=== PATIENT | male | born 1995 | race Caucasian/White ===

== ENCOUNTER 2023-07-11 08:37 | Outpatient (REF) | payer MEDICAID, SELFPAY ==
[2023-07-11 11:31] LABS: Estimated Average Glucose 117 mg/dL; Hemoglobin A1c % 5.7 % (<6.0)
[2023-07-11 11:52] LABS: Alanine Aminotransferase 28 U/L (0-40); Albumin Level 4.5 g/dL (3.5-5.0); Alkaline Phosphatase 70 U/L (39-117); Anion Gap 11 (12-20); Aspartate Amino Transferase 19 U/L (5-37); Bilirubin Total 0.5 mg/dL (0.0-1.0); Blood Urea Nitrogen 12 mg/dL (9-16); Calcium 9.6 mg/dL (8.4-10.2); Carbon Dioxide 27 mmol/L (22-29); Chloride 103 mmol/L (96-108); Cholesterol 241 mg/dL (<200); Estimated Glomerular Filt Rate > 60; Glucose Random 109 mg/dL (60-115); HDL Cholesterol 46 mg/dL (>40); LDL Cholesterol Calculated 173 mg/dL (<100); Potassium 4.1 mmol/L (3.3-5.1); Sodium 137 mmol/L (135-145); Total Protein 7.8 g/dL (6.5-8.0); Triglycerides 112 mg/dL (<150)
== END 2023-07-11 08:38 | disposition home or self-care (01) ==
LOC: HO.HHCL 08:37
PROVIDERS: Visit Provider Nurse Practitioner Family
DX: Z71.3 Dietary counseling and surveillance (principal); R03.0 Elevated blood-pressure reading, without diagnosis of hypertension
CPT/HCPCS: 36415; 80053; 80061; 83036

== ENCOUNTER 2023-08-26 16:35 | Outpatient (REF) | payer MEDICAID, SELFPAY ==
[2023-08-27 03:00] LABS: CT PCR NOT DETECTED (Not Detect.); NG PCR NOT DETECTED (Not Detect.)
[2023-08-29 04:07] LABS: ~Hepatitis C Antibody Nonreactive (Nonreactive)
[2023-08-30 12:23] LABS: RPR Rapid Plasma Reagin NON-REACTIVE (NON-REACTIVE)
[2023-09-16 18:18] LABS: HIV RNA PCR Qn Copies Not Detected Copies/mL; HIV RNA PCR Qn Log Copies Not Detected Log cps/mL
== END 2023-08-26 16:36 | disposition home or self-care (01) ==
LOC: HO.HHCL 16:35
PROVIDERS: Visit Provider Nurse Practitioner Family
DX: Z11.3 Encounter for screening for infections with a predominantly sexual mode of transmission (principal); Z11.59 Encounter for screening for other viral diseases
CPT/HCPCS: 0353U; 36415; 86592; 86803; 87536; 87900

== ENCOUNTER 2023-09-13 15:28 | Outpatient (AMB) | payer MEDICAID, SELFPAY ==
--- NOTE | 2023-09-13 15:29 | A.OFFVIS_ITS ---
Intake Vital Signs 09/13/23 15:37 Height 5 ft 9 in Weight 236 lb BMI 34.8 BP 145/70 H Blood Pressure Location Rt brachial Position Sitting Pulse 81 Intake Visit Reasons: Umbilial Hernia Intake Note: Patient referred by pcp Rock Gill for umbilical hernia. Patient first noticed end of 2022. Patient c/o: Irritated when rubbing against it. Bothersome after heavy meals. Material Planning Analyst Required: No Accompanied by: Self / Same As Patient Allergies No Known Allergies Allergy (Verified 09/13/23 15:34) HPI HPI Comments History of Present Illness Details Patient presents with a 6 month plus history of symptomatic umbilical hernia. His increasing size, becoming more symptomatic. He wished to have repaired. He does do significant heavy lifting at his place of employment. He has no other GI issues or complaints. Chart was reviewed and patient evaluated [facility] Surgical History (Updated 09/14/23 @ 13:41 by Milton Hays MD) [place] teeth extracted Social History (Updated 09/13/23 @ 15:35 by JANE Britt) Cigarettes Per Day: 5 Physical Exam Vital Signs: Last Vital Signs Pulse 81 09/13/23 15:37 BP 145/70 H 09/13/23 15:37 BMI result Body Mass Index 34.8 Chest Other: Chest breath sounds bilaterally, HS 1 in 2 GI Other: Patient was examined supine and standing with Valsalva. Bilateral groin exam negative. Genitalia within normal limits. Abdomen corpulent, soft, proximally 3 cm reducible umbilical hernia. Assessment & Plan Assessment & Plan (1) Umbilical hernia: Code(s): K42.9 - Umbilical hernia without obstruction or gangrene Plan Risks, benefits, alternatives of open umbilical hernia repair with mesh were reviewed the patient and included but not limited to bleeding, infection, recurrence, numbness, pain, scarring, bowel injury and the patient wishes to proceed. All questions answered. Arrangements will be made for this. Coding Level of Care Code New Pt Level 5 (15555) Diagnoses Umbilical hernia K42.9
[2023-09-13 15:37] VITALS: BP 145/70; PULSE 81; BMI 34.8
== END 2023-09-13 16:04 | disposition home or self-care (01) ==
PROVIDERS: PCP Internal Medicine; Referring Provider Internal Medicine; Visit Provider Surgery
DX: K42.9 Umbilical hernia without obstruction or gangrene (principal)
CPT/HCPCS: 99204

== ENCOUNTER → 2023-09-13 15:28 | Outpatient (BNVA) | payer MEDICAID, SELFPAY | PROVIDERS: PCP Internal Medicine; Referring Provider Internal Medicine; Visit Provider Surgery | DX: K42.9 Umbilical hernia without obstruction or gangrene (principal) | CPT/HCPCS: 99202 ==

== ENCOUNTER 2023-10-13 07:03 | Day surgery (SDC) | payer MEDICAID, SELFPAY ==
[2023-10-11 12:22] VITALS: BMI 34.0
--- NOTE | 2023-10-12 11:03 | MHC.SHP ---
Pre-Procedural Eval Section A - 24 Hr Update-Section A only Date of Service: 10/12/23 The patient is an INPATIENT: No Changes since office visit: No Cold of Flu in the past 2 weeks, No New Medical Problems, No Changes in Medication and No Patient answered all questions The patient has been examined within 24 hours of the surgical procedure. The History & Physical has been completed within 30 days and I have reviewed it.: Yes Section B - Complete if H&P > 30 days Chief Complaint: Umbilical hernia without obstruction or gangrene Allergies: Allergies Allergy/AdvReac Type Severity Reaction Status Date / Time No Known Allergies Allergy Verified 10/11/23 12:24 Plan I have reviewed the history and physical and performed a pertinent physical examination on my patient. No changes have occurred unless specified. Time Spent With Patient Time: Total time managing care of this patient today ____ minutes.
--- NOTE | 2023-10-12 11:49 | HO.ANESPROP2 ---
Documented by User: Marie Hernandez NP 10/12/23 11:49 HPI - Anesthesia Eval Consult details Narrative: 28yo M for Open Repair Hernia Umbilical Reducible with mesh PMFSH Active Problems Active Problems: All Active Problems (Updated 09/14/23 @ 13:41 by Milton Hays MD) Umbilical hernia (Acute) Past Medical History Medical History History of fainting History of heartburn Depression Anxiety Asthma Seasonal allergies Surgical History Surgical History [place] teeth extracted Social History Social History (Updated 10/13/23 @ 08:29 by Callie Rollins MD) Are you a primary social worker palliative care to a significant other at home: No Do you presently have visiting nurse or other home services: No Patient Tobacco Use Status: Current everyday Tobacco user Tobacco use type: Cigarette Cigarettes Per Day: 5 Substance Use Type: Crack/Cocaine and Marijuana Meds Allergies Allergy/AdvReac Type Severity Reaction Status Date / Time No Known Allergies Allergy Verified 10/13/23 07:24 Home Medications Medication Instructions Recorded Confirmed Last Taken Type escitalopram oxalate 5 mg tablet 5 mg PO QAM 09/13/23 10/13/23 10/12/23 History albuterol sulfate 90 mcg/actuation 2 puff inhalation Q4-6H PRN 10/11/23 10/11/23 Unknown History aerosol inhaler Shortness Of Breath Or Wheezing Exam Height,Weight and Vital Signs: Height 5 ft 9 in Weight 104.326 kg Pertinent Lab Results Pertinent Lab Results: Laboratory Tests 07/11/23 08:38 Sodium 137 Potassium 4.1 Chloride 103 Carbon Dioxide 27 BUN 12 Creatinine 0.91 Assessment and Plan Assessment Anesthesia Assessment: Chart Reviewed Documented by User: Callie Rollins MD 10/13/23 08:30 PMFSH Past Medical History Medical History History of fainting History of heartburn Depression Anxiety Asthma Seasonal allergies Family History Family history of problems with anesthesia: No Surgical History Surgical History [place] teeth extracted History of Problems with Anesthesia: No Social History Social History (Updated 10/13/23 @ 08:29 by Callie Rollins MD) Are you a primary social worker palliative care to a significant other at home: No Do you presently have visiting nurse or other home services: No Patient Tobacco Use Status: Current everyday Tobacco user Tobacco use type: Cigarette Cigarettes Per Day: 5 Substance Use Type: Crack/Cocaine and Marijuana Meds Allergies Allergy/AdvReac Type Severity Reaction Status Date / Time No Known Allergies Allergy Verified 10/13/23 07:24 Home Medications Medication Instructions Recorded Confirmed Last Taken Type escitalopram oxalate 5 mg tablet 5 mg PO QAM 09/13/23 10/13/23 10/12/23 History albuterol sulfate 90 mcg/actuation 2 puff inhalation Q4-6H PRN 10/11/23 10/11/23 Unknown History aerosol inhaler Shortness Of Breath Or Wheezing Exam Height,Weight and Vital Signs: Height 5 ft 9 in Weight 104.326 kg Vital Signs Temp Pulse Resp BP Pulse Ox O2 Del Method 10/13/23 07:43 98.0 F 58 16 135/70 95 Room Air Airway Mallampati Class: II TM Dist: >3cm Neck ROM: Full Loose/Missing/Broken Teeth: Yes ([place] teeth extracted. Denies broken or loose teeth) Heart: RRR Lungs: CTAB Assessment and Plan Assessment Anesthesia Assessment: Anesthesia Plan Discussed and Chart Reviewed Final Anesthetic Review Family History of Problems with Anesthesia: No History of Problems with Anesthesia: No NPO: Yes ASA Class: II Final Preanesthetic Review: No Changes in Pt Med Stat, Meds/Allgs Chart Reviewed, Consent Obtained/Reviewed and Anes Risks/Benef Reviewed Patient Risk: Intermediate Procedure Risk: Low Assessment/Block/Sedation in SS: Assess/Block/Sedation-SS Anesthetic Plan Anesthetic Plan: GA and TIVA Disposition: Standard PACU
[2023-10-13 07:25] VITALS: BMI 35.0
[2023-10-13 07:43] VITALS: BP 135/70; PULSE 58; RESP 16; TEMP 36.7; O2SAT 95
[2023-10-13] MEDS: Lactated Ringers 1,000 ML 100 ML IVCONT (08:04)
[2023-10-13 09:10] VITALS: BP 128/71; PULSE 60; RESP 16; TEMP 36.7; O2SAT 100
--- NOTE | 2023-10-13 09:14 | W.PM.OPN ---
Operative Note Operative Note Date of Service: 10/13/23 Narrative: Preoperative diagnosis: [] Incarcerated umbilical hernia Postop diagnosis: [] Incarcerated umbilical hernia Procedure [] open incarcerated umbilical hernia repair with mesh Surgeon: [] Saúl Humidifier Maintenance Worker: [] Wilfred Type of Anesthesia: [] MAC converted general Indication for surgery: [] Approximately 3 cm incarcerated umbilical hernia with omental contents. Findings: [] Patient brought to the operating room, placed on operative table in supine position, after an adequate level of MAC inverted general anesthesia was induced, the patient's abdomen was prepped and draped in usual sterile fashion. Using a supraumbilical curvilinear incision, this carried down through skin, subcutaneous tissue, where hernia sac was identified and circumferentially dissected down to the fascia. Sac was dissected off the posterior aspect of the umbilicus and opened. Incarcerated omental contents and sac were amputated using Bovie. Fascia margins were circumferentially cleared. A Bard mesh was placed in the defect, and the superficial layer of the mesh was circumferentially sutured to the surrounding fascia using interrupted 0 Ethibond suture. At completion of the procedure, mesh was then good position with no tension or gallops. Wound was irrigated, secured hemostasis, and closed in the following manner; posterior aspect of the umbilicus was tacked to the wound floor using interrupted 3-0 Vicryl sutures. Skin was closed using interrupted inverted dermal 3-0 Vicryl sutures followed by Steri-Strips and sterile dressings. Wound was infiltrated 0.5% Marcaine/1% lidocaine. Sponge, needle, and instrument counts reported correct. Patient tolerated the procedure well and emerged anesthesia in stable condition. EBL minimal
[2023-10-13 09:15] VITALS: BP 120/63; PULSE 60; RESP 16; O2SAT 100
[2023-10-13 09:20] VITALS: BP 123/95; PULSE 60; RESP 16; O2SAT 100
[2023-10-13 09:25] VITALS: BP 143/77; PULSE 62; RESP 16; O2SAT 100
[2023-10-13] MEDS: oxyCODONE HCl Immed Release 5 MG TABLET PO (09:27)
[2023-10-13 09:40] VITALS: BP 133/71; PULSE 60; RESP 16; TEMP 36.4; O2SAT 100
== END 2023-10-13 10:11 | disposition home or self-care (01) ==
PROVIDERS: Visit Provider Surgery
PROC: (CPT 49594; principal; 2023-10-13 08:50)
DX: K42.0 Umbilical hernia with obstruction, without gangrene (principal); J45.909 Unspecified asthma, uncomplicated; Z79.899 Other long term (current) drug therapy; F17.210 Nicotine dependence, cigarettes, uncomplicated; F12.90 Cannabis use, unspecified, uncomplicated; F14.90 Cocaine use, unspecified, uncomplicated
CPT/HCPCS: 49594; 88302; C1781; J0665; J0690; J2250; J2704; J3010

== ENCOUNTER → 2023-10-13 07:03 | Outpatient (BNV) | payer MEDICAID, SELFPAY | PROVIDERS: Visit Provider Surgery | DX: K42.9 Umbilical hernia without obstruction or gangrene (principal) | CPT/HCPCS: 49594 ==

== ENCOUNTER 2023-10-25 09:19 | Outpatient (AMB) | payer MEDICAID, SELFPAY ==
[2023-10-25 09:25] VITALS: BP 143/73; PULSE 68
--- NOTE | 2023-10-25 09:25 | MHC.OFFVIS ---
Intake Vital Signs 10/25/23 09:25 Weight 233 lb BP 143/73 H Blood Pressure Location Rt brachial Position Sitting Pulse 68 Intake Visit Reasons: S/p umbilical hernia repair Intake Note: Patient here s/p umbilical hernia repair on 10-13-23. Reports incisions healing well. Patient c/o: steri strips still in place. No longer taking rx pain meds. Shaper And Presser Required: No Accompanied by: Self / Same As Patient Allergies No Known Allergies Allergy (Verified 10/25/23 09:26) HPI HPI Comments History of Present Illness Details Patient presents for follow-up. He has no wound issues or complaints. He is increasing his activity level. He has tolerating a diet. Having regular bowel habits. [facility] Medical History History of fainting History of heartburn Depression Anxiety Asthma Seasonal allergies Surgical History Umbilical hernia (10/13/23) [place] teeth extracted Social History Are you a primary hemodialysis patient care specialist to a significant other at home: No Do you presently have visiting nurse or other home services: No Comment: counts correct Patient Tobacco Use Status: Current everyday Tobacco user Tobacco use type: Cigarette Cigarettes Per Day: 5 Substance Use Type: Crack/Cocaine and Marijuana Physical Exam Vital Signs: Last Vital Signs Pulse 68 10/25/23 09:25 BP 143/73 H 10/25/23 09:25 GI Other: Abdomen soft. Wound clean dry and intact. Assessment & Plan Assessment & Plan (1) Status post umbilical hernia repair, follow-up exam: Code(s): Z09 - Encounter for follow-up examination after completed treatment for conditions other than malignant neoplasm Plan Patient has been given local instructions. He will start work in 1 week's time with 3 weeks light duty. No provided. All questions answered. Patient will will otherwise follow-up p.r.n. Coding Level of Care Code Global (58109) Diagnoses Status post umbilical hernia repair, follow-up exam Z09
== END 2023-10-25 09:31 | disposition home or self-care (01) ==
PROVIDERS: PCP Internal Medicine; Visit Provider Surgery
DX: Z09 Encounter for follow-up examination after completed treatment for conditions other than malignant neoplasm (principal)
CPT/HCPCS: 99212

== ENCOUNTER → 2023-10-25 09:19 | Outpatient (BNVA) | payer MEDICAID, SELFPAY | PROVIDERS: PCP Internal Medicine; Visit Provider Surgery | DX: Z09 Encounter for follow-up examination after completed treatment for conditions other than malignant neoplasm (principal); Z98.890 Other specified postprocedural states; Z87.19 Personal history of other diseases of the digestive system | CPT/HCPCS: 99212 ==